=== PATIENT | female | born 1950 | race Caucasian/White ===

== ENCOUNTER → 2017-10-16 | Day surgery (SDC) | payer MEDICARE, BC ==
[~2017-10-16] MED LIST: ASPIR 8181 MG PO; BUPIVACAINE HCL 0.5% INJ 30 ML VIAL INJ ONE; CEFAZOLIN SOD 1 GM VIAL ONE; DEXAMETHASONE SOD PHOS INJ 4 MG/ML VIAL ONE; FENTANYL CITRATE/PF 100MCG/2 ML INJ ONE; KETOROLAC TROMETHAMINE 30 MG/ML VIAL ONE; LIDOCAINE HCL 2% LOCAL INJ 5 ML SDV VIAL INJ ONE; MIDAZOLAM HCL 2 MG/2 ML VIAL ONE; MULTI-VITAMIN1 EACH PO; ONDANSETRON HCL INJ 2 MG/ML VIAL ONE; PROPOFOL IV EMULSION 10 MG/ML 20 ML VIAL ONE; SEVOFLURANE INHAL SOLN 250 ML PEN BTL ONE
[2017-10-16 05:36] LABS: BASOPHILS % 0.9 % (0.0-1.0); EOSINOPHILS # (AUTO) 0.1 (0.0-0.4); EOSINOPHILS % 2.2 % (0.0-6.0); HEMATOCRIT 42.8 % (34.2-44.1); HEMOGLOBIN 14.6 g/dL (12.0-16.0); LYMPHOCYTES # (AUTO) 1.6 (1.0-3.2); LYMPHOCYTES % 35.2 % (18.0-39.1); MEAN CORPUSCULAR HEMOGLOBIN 33.8 pg (28-32); MEAN CORPUSCULAR HGB CONC 34.1 g/dL (31-35); MEAN CORPUSCULAR VOLUME 99.1 fL (81-99); MONOCYTES # (AUTO) 0.5 (0.2-0.8); MONOCYTES % 11.8 % (4.4-11.3); NEUTROPHILS # (AUTO) 2.3 (2.1-6.9); NEUTROPHILS % 49.7 % (38.7-80.0); PLATELET COUNT 166 x10e3/uL (140-360); RED BLOOD COUNT 4.32 x10e6/uL (3.6-5.1); RED CELL DISTRIBUTION WIDTH 13.1 % (11.7-14.4)
--- NOTE | 2017-10-16 13:37 | Operative Report ---
DATE OF PROCEDURE: October 16, 2017 SURGEON: Veronique MARIANO D.P.M. FURNACE CHARGER SURGEON: Estephania OLMSTEAD D.P.M. PREOPERATIVE DIAGNOSIS: 1. Foreign body left foot. 2. Fractured sesamoid left foot. POSTOPERATIVE DIAGNOSIS: 1. Foreign body left foot. 1. Fractured sesamoid left foot. OPERATIVE PROCEDURE: 1. Removal of a foreign body left foot. 2. Excise of sesamoid left foot. DETAILS OF PROCEDURE: The patient was placed on the OR table in the supine position. The left lower extremity was prepped and draped in the usual manner. A general anesthetic was administered and hemostasis accomplished using a pneumatic cuff set at 350 mmHg at thigh level. A small incision approximately a centimeter in length was made on the area over where the foreign body supposedly had entered the foot on the plantar aspect of the 1st metatarsal head. The incision was deepened. The area was probed with a curved hemostat. A hard object was felt, and I was able to get ahold of it with the hemostat and able to remove it in total. It appeared to be a fish bone. That wound was then flushed with sterile saline solution and closed with 4-0 nylon. A second incision approximately 4 cm in length was made on the medial aspect of the 1st metatarsophalangeal joint. The incision was deepened, exposing the capsule. The capsule was opened with a linear incision and dissected away from the medial aspect of the metatarsal head and also the medial aspect of the sesamoid. The sesamoid was then identified. It clamped with a towel clamp, and it was excised with a 15 blade. Following the procedure, the wound was flushed with sterile saline solution. The capsule and subcutaneous tissue were closed with 3-0 Vicryl and the skin with 4-0 nylon. Following the procedure, 10 mL of 0.5 Marcaine was used as a local injection. One mL of Decadron was also injected into the incision site to hopefully minimize postop scarring. A sterile compression dressing was then applied. At this time, the pneumatic cuff was released and reflex hyperemia was observed to all digits. The patient tolerated the procedure and the anesthesia well and left the OR to recovery in good condition with vital signs stable. Job#: [id number]
== END | disposition home or self-care (01) ==
LOC: OR 07:00
PROVIDERS: ATTEND Podiatrist Foot & Ankle Surgery
DX: M60.271 Foreign body granuloma of soft tissue, not elsewhere classified, right ankle and foot (principal); S82.891A Other fracture of right lower leg, initial encounter for closed fracture; X58.XXXA Exposure to other specified factors, initial encounter; Z88.8 Allergy status to other drugs, medicaments and biological substances; Z79.82 Long term (current) use of aspirin
CPT/HCPCS: 10120; 28315; 36415; 85025; 93005; J0690; J1100; J1885; J2001; J2250; J2405